=== PATIENT | male | born 1985 | race Caucasian/White ===

== ENCOUNTER 2020-06-29 07:10 | Outpatient (CLI) | payer BC, SELFPAY ==
--- NOTE | 2020-07-16 14:45 | WPDHOMESLEEP ---
Sleep Study - Home Unattended Date of Study: 06/29/20 Ordering Provider: Kelsy Ba MD Interpreting Provider: Sophia Menard MD Home Sleep Study Type: Watch PAT Height: 1.85 m Weight: 166.015 kg Body Mass Index: 48.2 Neck Circumference (inches): 19.5 Stacy: 7 Reason for Sleep Study Frequent daytime sleepiness that causes problems at work Sleep History Blas Reyes is a [age]-year-old male who does not sleep enough. He has ADHD. His doctor thinks that sleep apnea may be contributing to his ADHD as well as depressive symptoms. He has had a sleep problem for longer than 2 years. He constantly snores, and frequently this is loud enough that others complain about it. He has a difficult time falling asleep. He wakes up throughout the night, he has excessive daytime sleepiness and a difficult time waking in the morning. There is a family history of sleep issues with his father and sister both having sleep apnea. He rarely awakens at night with heartburn, belching or coughing. He rarely awakens from sleep feeling short of breath. He frequently has trouble sleep with a cold. He does not gasp for breath at night. He does not have breathing problems witnessed by others at night. He does not sweat excessively at night or notice his heart pounding or beating irregularly at night. He rarely falls asleep during the day. He does not fall asleep involuntarily or while driving the car. He does not fall asleep during exertion of physical effort. He does not have loss of muscle tone with strong emotion. 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 He does not feel paralyzed on waking or falling asleep. He rarely has vivid dreamlike scenes upon awakening or falling asleep. He never is afraid to go to sleep. He does not have nightmares. He does not remember his dreams. He occasionally has racing thoughts, feelings of sadness, depression, and anxiety. He rarely has muscular tension. He rarely notices parts of his body jerking. He does not kick at night. He does not have crawling and aching feelings in his legs. He does not have leg pain at night. He occasionally has morning jaw pain. He does not grind his teeth at night. He occasionally has bothered by pain during the day. He is not awakened by pain at night. He frequently wakes up feeling stiff in the morning with sore achy muscles and pain in the neck and spine. He has memory problems and concentration difficulties. He rarely awakens feeling refreshed. He rarely has morning headaches. Normal bedtime is 11:00 p.m., falling asleep within 15 minutes, waking 1-2 times at night to urinate or attend to one of his kids. He wakes up in the morning at 6:00 a.m.. He does take naps in the afternoon or evening. A short nap lasting 10 or 15 minutes is not refreshing. He feels better in the afternoon or evening compared to the morning. Habits: Never smoked tobacco. Caffeine 100-250 mg a day. Alcohol 1 beverage a day. No recreational drugs. [facility] Past Medical History Medical History (Updated 07/16/20 @ 15:01 by Sophia Menard MD) Adult attention deficit disorder BPH w urinary obs/LUTS Moderate episode of recurrent major depressive disorder Family History Family History Father Diabetes mellitus Patient's father is in good health Mother Hypertension Patient's mother is in good health Family history of malignant neoplasm of cervix Grandparent Hypertension Sibling Hypertension Social History Social History Smoking status: Never smoker Alcohol intake: current Medications Home Medications Medication Instructions Recorded Confirmed Type bupropion HCl 450 mg 24 hr tablet, 450 mg PO QAM #90 tablet 02/14/20 Rx extended release tamsulosin 0.4 mg capsule 0
[2020-07-16 15:14] VITALS: BMI 48.2
== END 2020-06-29 07:11 | disposition home or self-care (01) ==
LOC: ANHCSM 07:11
PROVIDERS: PCP Family Medicine; Visit Provider Family Medicine
DX: G47.33 Obstructive sleep apnea (adult) (pediatric) (principal)
CPT/HCPCS: 95800

== ENCOUNTER → 2020-10-16 03:14 | Outpatient (CLI) | payer BC, SELFPAY ==
[2020-10-16 18:14] LABS: SARS-CoV-2 RNA PCR Negative
== END ==
PROVIDERS: PCP Family Medicine; Visit Provider Internal Medicine Critical Care Medicine
DX: R68.89 Other general symptoms and signs (principal); Z20.822 Contact with and (suspected) exposure to COVID-19
CPT/HCPCS: C9803; U0003; U0005

== ENCOUNTER 2020-10-18 08:10 | Outpatient (CLI) | payer BC, SELFPAY ==
--- NOTE | 2020-11-05 13:52 | WPDSLEEPSTUD ---
Sleep Study Date of Study: 10/18/20 Ordering Provider: Kelsy Ba MD Interpreting Physician: Sophia Menard MD Sleep Study Type: CPAP Titration Height: 1.85 m Weight: 167.829 kg Body Mass Index: 48.8 Neck Circumference (inches): 20 Ramer: 8 Reason for Sleep Study Home Sleep Test June 29, 2020 [id number] mild obstructive sleep apnea AHI 6.5, 81% lowest saturation, and a few central apneas were present. Patient presents for CPAP titration. Sleep History Blas Reyes is a 35 year-old male with ADHD and poor sleep. His doctor thinks that sleep apnea may be contributing to his ADHD as well as depressive symptoms. He constantly snores, and frequently this is loud enough that others complain about it. He has a difficult time falling asleep, wakes up during the night, has difficulty waking in the morning and has excessive daytime sleepiness. There is a family history of sleep issues with his father and sister both having sleep apnea. He rarely awakens at night with heartburn, belching or coughing. He rarely awakens from sleep feeling short of breath. He frequently has trouble sleep with a cold. He does not gasp for breath at night. He does not have breathing problems witnessed by others at night. He does not sweat excessively at night or notice his heart pounding or beating irregularly at night. He rarely falls asleep during the day. He does not fall asleep involuntarily or while driving the car. He does not fall asleep during exertion of physical effort. He does not have loss of muscle tone with strong emotion. 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 He does not feel paralyzed on waking or falling asleep. He rarely has vivid dreamlike scenes upon awakening or falling asleep. He never is afraid to go to sleep. He does not have nightmares. He does not remember his dreams. He occasionally has racing thoughts, feelings of sadness, depression, and anxiety. He rarely has muscular tension. He rarely notices parts of his body jerking. He does not kick at night. He does not have crawling and aching feelings in his legs. He does not have leg pain at night. He occasionally has morning jaw pain. He does not grind his teeth at night. He occasionally has bothered by pain during the day. He is not awakened by pain at night. He frequently wakes up feeling stiff in the morning with sore achy muscles and pain in the neck and spine. He has memory problems and concentration difficulties. He rarely awakens feeling refreshed. He rarely has morning headaches. Normal bedtime is 11:00 p.m., falling asleep within 15 minutes, waking 1-2 times at night to urinate or attend to one of his kids. He wakes up in the morning at 6:00 a.m.. He does take naps in the afternoon or evening. A short nap lasting 10 or 15 minutes is not refreshing. He feels better in the afternoon or evening compared to the morning. Habits: Never smoked tobacco. Caffeine 100-250 mg a day. Alcohol 1 beverage a day. No recreational drugs. [facility] Past Medical History Medical History (Updated 11/05/20 @ 14:21 by Sophia Menard MD) Adult attention deficit disorder BPH w urinary obs/LUTS Moderate episode of recurrent major depressive disorder Obstructive sleep apnea (~06/2020) 2.12.21 + home test Family History Family History Father Diabetes mellitus Patient's father is in good health Mother Hypertension Patient's mother is in good health Family history of malignant neoplasm of cervix Grandparent Hypertension Sibling Hypertension Social History Social History Alcohol intake: current Medications Home Medications Medication Instructions Recorded Confirmed Type bupropion HCl 450 mg 24 hr tablet, 450 mg PO QAM #90 tablet 02/14/20 Rx ext
[2020-11-05 14:05] VITALS: BMI 48.8
== END 2020-10-19 06:22 | disposition home or self-care (01) ==
LOC: ANHCSM 08:10
PROVIDERS: PCP Family Medicine; Visit Provider Family Medicine
DX: G47.33 Obstructive sleep apnea (adult) (pediatric) (principal)
CPT/HCPCS: 95811